=== PATIENT | male | born 1985 | race Native Hawaiian/Other Pacific Islander ===

== ENCOUNTER 2018-05-27 13:55 | Emergency (ER) | payer SELFPAY ==
[2018-05-27 14:02] VITALS: BP 130/67
--- NOTE | 2018-05-27 18:33 | Emergency Department Report ---
ED Laceration HPI - HPI Chief Complaint: Wound/Laceration Stated Complaint: FINGER LACERATION Time Seen by Provider: 05/27/18 15:30 Occurred When: Yesterday Location: Upper Extremity (left thumb) Severity: mild Tetanus Status: Up to Date Laceration Symptoms: Yes Pain, No Foreign Body Sensation, No Numbness, No Weakness Other History: This is a 32-year-old male who presents with a laceration to the left thumb. Patient states he was cutting vegetables at home last night and accidentally cut the tip of his left thumb around 2100. Patient mother cleaned the area with peroxide and soap and water and applied naproxen and powder from [place]. They applied a dressing and follow-up today. Patient states wound is closing but he wanted to make sure it wasn't infecte. He has full range of motion and denies numbness or tingling. Patient denies active bleeding, numbness or tingling, swelling, erythema or surrounding cellulitis. ED Review of Systems ROS: Stated complaint: FINGER LACERATION Other details as noted in HPI Constitutional: denies: chills, fever Respiratory: denies: cough, shortness of breath, wheezing Cardiovascular: denies: chest pain, palpitations Gastrointestinal: denies: abdominal pain, nausea, diarrhea Skin: lesions (laceration to left palm). denies: rash Neurological: denies: headache, weakness, numbness, paresthesias Psychiatric: denies: anxiety, depression ED Past Medical Hx - Past Medical History Previous Medical History?: No - Surgical History Past Surgical History?: No - Social History Smoking Status: Never Smoker Substance Use Type: None - Medications Home Medications: Home Medications Medication Instructions Recorded Confirmed Last Taken Type Sulfamethoxazole/Trimethoprim 1 each PO BID #14 tablet 05/27/18 Unknown Rx [Bactrim DS TAB] Laceration Physical Exam - Exam General: Vital signs noted. No distress. Alert and acting appropriately. Wound Length (cm): 1 (half a centimeter) Laceration Location: Upper Extremity (left 1st distal phalanx) Full Body Front + Back: 1 - Half a centimeter healing laceration to left distal 1st phalanx, no active bleeding or surrounding cellulitis Laceration Exam: Yes Normal Distal CMS, No Foreign Body, No Exposed Tendon, Vessel, or Nerve, No Tendon Injury ED Course Vital Signs 05/27/18 13:57 Temperature 98.6 F Pulse Rate 61 Respiratory 18 Rate Blood Pressure 130/67 O2 Sat by Pulse 98 Oximetry ED Medical Decision Making - Medical Decision Making This is a 32 y.o. male presents with laceration to left palm from cutting vegetables yesterday around 2100. Patient examined by me. No labs or her radiograph obtained at this time. Patient is non-toxic appearing and stable. At this time is healing appropriately sutures do not require. Wound was cleaned with normal saline and sterile, stress and applied to area. Patient received a tetanus vaccine 2 years ago. Discharged home for outpatient treatment with bactrim. Discussed ER care plan with patient. Patient agreed with plan. F/U with PCP. Critical care attestation.: If time is entered above; I have spent that time in minutes in the direct care of this critically ill patient, excluding procedure time. ED Disposition Clinical Impression: Laceration of thumb without damage to nail Qualifiers: Encounter type: initial encounter Foreign body presence: without foreign body Laterality: left Qualified Code(s): S61.012A - Laceration without foreign body of left thumb without damage to nail, initial encounter Disposition: TO HOME OR SELFCARE Is pt being admited?: No Does the pt Need Aspirin: No Condition: Stable Instructions: Suture Care (ED), Finger Laceration (ED) Additional Instructions: [place] antibiticos segn lo prescrito para el curso completo. Mantenga la herida seca y limpia reji 48 horas. Evite poner enzo tensin en el sitio de la herida. Apoye el brazo sobre las almohadas para disminuir la hinchazn. Kiana un seguimiento con el proveedor de atencin primaria en 2-3 tolentino. Vuelva a la elis de emergencias si est tiwari, hinchado, descarga fea o fiebre. Take antibiotics as prescribed for the full course. Keep wound dry and clean for 48 hours. Avoid putting to much tension on wound site. Prop arm up on pillows to decrease swelling. Follow up with Primary Care Provider in 2-3 days. Return to ER if red, swollen, foul discharge, or fever. Prescriptions: Sulfamethoxazole/Trimethoprim [Bactrim DS TAB] 1 each PO BID #14 tablet Referrals: [facility] [Outside] - 3-5 Days [facility] [Outside] - 3-5 Days [facility] [Outside] - 3-5 Days Time of Disposition: 18:49 Print Language: [id number]
== END 2018-05-27 18:57 | disposition home or self-care (01) ==
LOC: ED 13:55
DX: S61.012A Laceration without foreign body of left thumb without damage to nail, initial encounter (principal)
CPT/HCPCS: 99282